=== PATIENT | female | born 1950 | race Caucasian/White ===

== ENCOUNTER 2020-04-05 13:59 | Outpatient (CLI) | payer MEDICARE, OTHER, SELFPAY ==
--- NOTE | 2020-04-05 14:31 | XR_ITS ---
WS: [id number] FOOT LEFT TECHNIQUE: 3 views of the left foot CLINICAL INFORMATION: FOOT PAIN, LEFT COMPARISON: None. FINDINGS: Osteopenia. Mild IP joint narrowing worse involving the DIP joints. No significant erosive changes. N ormal anatomic alignment. Enthesophyte at the Achilles insertion. XR/XR foot LT min 3V* [id number] IMPRESSION: No significant erosive changes.
== END 2020-04-05 14:00 | disposition home or self-care (01) ==
LOC: RADWPI 14:03
PROVIDERS: Family Provider Electrodiagnostic Medicine; PCP Electrodiagnostic Medicine; Visit Provider Electrodiagnostic Medicine
DX: M79.672 Pain in left foot (principal)
CPT/HCPCS: 73630

== ENCOUNTER 2020-04-19 15:29 | Outpatient (RCR) | payer MEDICARE, OTHER, SELFPAY | END 2020-04-26 23:59 | disposition home or self-care (01) | LOC: SPT 15:29 | PROVIDERS: PCP Electrodiagnostic Medicine; Visit Provider Podiatrist Foot & Ankle Surgery | DX: M76.72 Peroneal tendinitis, left leg (principal) | CPT/HCPCS: 97035; 97124; 97161 ==

== ENCOUNTER 2020-04-21 08:12 | Outpatient (CLI) | payer MEDICARE, OTHER, SELFPAY ==
--- NOTE | 2020-04-21 08:17 | MM_ITS ---
WS: [id number] BILATERAL DIGITAL SCREENING MAMMOGRAPHY WITH CAD CLINICAL INFORMATION: SCREENING HISTORY: Screening mammogram. No current complaints. COMPARISON: December 04, 2018 TECHNIQUE: Bilateral CC and MLO views. FINDINGS: Scattered fibroglandular densities bilaterally. No suspicious focal mass, asymmetry, calcifications, or architectural distortion. No evidence of malignancy. Stable punctate calcifications bilateral freddy sts. IMPRESSION: MM/[id number] BI-RADS: 2-Benign FOLLOW UP: 1 Year Follow-up Recommend return to annual screening mammography.
== END 2020-04-21 08:13 | disposition home or self-care (01) ==
LOC: RADSHAW 08:16
PROVIDERS: PCP Electrodiagnostic Medicine; Visit Provider Electrodiagnostic Medicine
DX: Z12.31 Encounter for screening mammogram for malignant neoplasm of breast (principal)
CPT/HCPCS: 77067

== ENCOUNTER 2020-04-27 06:00 | Outpatient (RCR) | payer MEDICARE, OTHER, SELFPAY | END 2020-05-27 23:59 | disposition home or self-care (01) | LOC: SPT 06:00 | PROVIDERS: PCP Electrodiagnostic Medicine; Visit Provider Podiatrist Foot & Ankle Surgery | DX: M76.72 Peroneal tendinitis, left leg (principal) | CPT/HCPCS: 97035; 97140 ==

== ENCOUNTER 2021-05-03 10:29 | Outpatient (CLI) | payer MEDICARE, SELFPAY ==
--- NOTE | 2021-05-03 10:41 | MM_ITS ---
WS: [id number] BILATERAL DIGITAL SCREENING MAMMOGRAPHY WITH CAD CLINICAL INFORMATION: SCREENING HISTORY: Screening mammogram. No current complaints. COMPARISON: April 21, 2020, 2018, 2017, 10,015 TECHNIQUE: Bilateral CC and MLO views. FINDINGS: Scattered fibroglandular densities bilaterally. Stable punctate and lucent centered calcifications. S table linear cluster of calcifications inferior medial left breast. No suspicious focal mass, asymmet ry, calcifications, or architectural distortion. No evidence of malignancy. MM/[place] [id number] IMPRESSION: BI-RADS: 2-Benign FOLLOW UP: 1 Year Follow-up Recommend return to annual screening mammography.
== END 2021-05-03 10:30 | disposition home or self-care (01) ==
LOC: RADSHAW 10:39
PROVIDERS: PCP Electrodiagnostic Medicine; Visit Provider Electrodiagnostic Medicine
DX: Z12.31 Encounter for screening mammogram for malignant neoplasm of breast (principal)
CPT/HCPCS: 77067

== ENCOUNTER 2022-04-08 07:21 | Outpatient (CLI) | payer MEDICARE, SELFPAY ==
--- NOTE | 2022-04-08 | XR_ITS ---
WS: [id number] LEFT HAND: 3 VIEW(S) TECHNIQUE: PA, oblique and lateral. HISTORY: LEFT HAND PAIN COMPARISON: None available. Mild narrowing of the interphalangeal joint with hypertrophic osteophytes. No erosions. No fracture. No soft tissue edema. XR/XR hand LT min 3V* [id number] IMPRESSION: Mild to moderate changes of osteoarthritis.
== END 2022-04-08 07:22 | disposition home or self-care (01) ==
LOC: RADOUTREAD 04-10 07:23
PROVIDERS: PCP Electrodiagnostic Medicine; Visit Provider Nurse Practitioner Family
DX: M79.642 Pain in left hand (principal); M19.042 Primary osteoarthritis, left hand
CPT/HCPCS: 73130

== ENCOUNTER → 2022-06-05 14:26 | Outpatient (BNVA) | payer MEDICARE, SELFPAY | PROVIDERS: PCP Electrodiagnostic Medicine; Visit Provider Orthopaedic Surgery | DX: M47.812 Spondylosis without myelopathy or radiculopathy, cervical region (principal) | CPT/HCPCS: 99204 ==

== ENCOUNTER 2022-06-11 09:54 | Outpatient (CLI) | payer MEDICARE, SELFPAY ==
--- NOTE | 2022-06-11 09:58 | MM_ITS ---
WS: [id number] VIEWS: MLO and CC views both breasts. 3D digital tomosynthesis is also included in this exam. Comparison made with prior exam of 07/21/2014. 08/09/2015, 02/15/2017, 12/04/2018, 04/21/2020, 05/03/2021.. Findings: There was no sign of mass, architectural distortion or suspicious calcification in either breast. Sc attered fibroglandular densities MM/[place] [id number] Impression: BI-RADS: 2-Benign FOLLOW-UP: 1 Year Follow-up This mammogram was also analyzed by the Computer Aided Detection System R2 Imag e Laundry Washer.
== END 2022-06-11 09:55 | disposition home or self-care (01) ==
LOC: RAD 09:55
PROVIDERS: PCP Electrodiagnostic Medicine; Visit Provider Electrodiagnostic Medicine
DX: Z12.31 Encounter for screening mammogram for malignant neoplasm of breast (principal)
CPT/HCPCS: 77063; 77067

== ENCOUNTER → 2022-08-06 08:56 | Outpatient (BNVA) | payer MEDICARE, SELFPAY | PROVIDERS: PCP Electrodiagnostic Medicine; Visit Provider Student in an Organized Health Care Education/Training Program | DX: M15.2 Bouchard's nodes (with arthropathy) (principal) | CPT/HCPCS: 73130; 99203 ==

== ENCOUNTER → 2023-05-22 10:50 | Outpatient (BNVA) | payer MEDICARE, SELFPAY | PROVIDERS: PCP Electrodiagnostic Medicine; Visit Provider Podiatrist Foot & Ankle Surgery | DX: Q82.8 Other specified congenital malformations of skin | CPT/HCPCS: 17110; 99203 ==

== ENCOUNTER 2023-06-26 09:20 | Outpatient (CLI) | payer MEDICARE, SELFPAY ==
--- NOTE | 2023-06-26 09:30 | MM_ITS ---
WS: [id number] VIEWS: MLO and CC views both breasts. 3D digital tomosynthesis is also included in this exam. Comparison made with prior exam of 08/09/2015, 02/15/2017, 12/04/2018, 04/21/2020, 05/03/2021, 06/11/2022.. Findings: There was no sign of mass, architectural distortion or suspicious calcification in either breast. Sta ble appearing nodular densities in both breasts. The breasts are heterogeneously dense which may obs cure small masses. Impression: MM/[place] [id number] BI-RADS: 2-Benign FOLLOW-UP: 1 Year Follow-up This mammogram was also analyzed by the Computer Aided Detection System R2 Imag e Product Development Worker.
== END 2023-06-26 09:21 | disposition home or self-care (01) ==
PROVIDERS: PCP Electrodiagnostic Medicine; Visit Provider Electrodiagnostic Medicine
DX: Z12.31 Encounter for screening mammogram for malignant neoplasm of breast (principal)
CPT/HCPCS: 77063; 77067

== ENCOUNTER → 2023-07-08 12:48 | Outpatient (BNVA) | payer MEDICARE, SELFPAY | PROVIDERS: PCP Electrodiagnostic Medicine; Visit Provider Podiatrist Foot & Ankle Surgery | DX: Q82.8 Other specified congenital malformations of skin | CPT/HCPCS: 17110 ==

== ENCOUNTER 2023-12-10 19:59 | Observation (INO) | payer MEDICARE, SELFPAY ==
[2023-12-10] VITALS (33 sets, daily range): BP systolic 109–154; BP diastolic 44–69; PULSE 87–102; RESP 17–18; TEMP 36.6; O2SAT 88–98; BMI 33.0
--- NOTE | 2023-12-10 20:14 | ED_ITS ---
HPI - Syncope 2 General: Chief Complaint: Syncope Stated Complaint: syncope Time Seen by Provider: 12/10/23 20:03 Source: patient and EMS Mode of arrival: EMS Limitations: no limitations History of Present Illness: 73-year-old female states she has had 4- 5 episodes of vomiting over the last 4 hours. States she has been very nauseous had some episodes of upper abdominal cramping as well. States that after her last episode of vomiting she did pass out. She denies hitting her head denies any headache she denies chest pain she denies any fever denies any diarrhea denies any blood in her stool. 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 Hx of osteoarthritis Loose right total knee arthroplasty Tachycardia Surgical History Hx of partial thyroidectomy Hx of lumpectomy History of laminectomy Hx of left knee surgery Family History Father , AGE 69 CAD (coronary artery disease) Myocardial infarction Stroke Mother , AGE 95 Atrial fibrillation Stroke Other Psychiatric illness Social History Smoking and tobacco/nicotine status: never used tobacco/nicotine Alcohol intake: never Household members: spouse Marital status: Current occupational status: employed Physical Exam 2 Const: COMMON NORMALS: no acute distress, patient oriented x3 and healthy appearing HENMT: COMMON NORMALS: normocephalic and atraumatic HEAD & SCALP: n ormocephalic and atraumatic Eye: COMMON NORMALS: Equal, round and reactive pupils present and EOMs intact bilaterally PUPIL: Yes Equal, round and reactive pupils present Neck/C-Spine: COMMON NORMALS: full ROM and supple Chest: COMMONS NORMALS: normal inspection of the chest and normal palpation of entire chest wall Resp: COMMON NORMALS: normal respiratory effort, No retractions, No use of accessory muscles and clear to auscultation bilaterally AUSCULTATION: clear to auscultation bilaterally Cardio: COMMON NORMALS: regular rate, regular rhythm and No murmurs present (Cardio) RATE: regular rate RHYTHM: regular rhythm GI: COMMON NORMALS: Normal to inspection, nondistended, normoactive bowel sounds present, Soft to palpation, non-tender and no masses PALPATION: Yes Soft to palpation Extremity: COMMON NORMALS: normal to inspection and full ROM Neuro: COMMON NORMALS: patient oriented x3, moves all extremities and no focal motor deficits Psych: COMMON NORMALS: mental status grossly normal, Normal thought process present and cooperative THOUGHT PROCESS: Normal thought process present Skin: COMMON NORMALS: no rashes or lesions noted and no wounds GENERAL SKIN EXAM: no rashes or lesions noted Course 2 Vital Signs: Vital signs: Vital Signs Temperature 97.8 F 12/10/23 20:01 Pulse Rate 102 H 12/10/23 20:13 Respiratory Rate 17 12/10/23 20:13 Blood Pressure 141/55 12/10/23 21:35 Pulse Oximetry 92 12/10/23 21:35 Oxygen Delivery Me thod Room Air 12/10/23 20:13 MDM - Syncope Medical Decision Making Patient presents here with an upper GI bleed she had hematemesis at home Gastroccult of the hematemesis is positive did a rectal exam here Hemoccult here is negative she does have a elevated BUN to creatinine ratio I believe she likely has had an upper GI bleed hemoglobin is stayed pretty much stable her vital signs here been stable I spoke to the hospitalist and surgeon will admit. Medical Records I reviewed the patient's medical records. Lab Data I reviewed the patient's lab results. 12/10/23 21:39 12/10/23 20:24 Laboratory Results WBC 10.32 10^3/uL (3.29-11.43) 12/10/23 20:24 RBC 3.61 10^6/uL (3.85-5.65) L 12/10/23 20:24 Hgb 10.40 g/dL (11.27-16.99) L 12/10/23 21:39 Hct 33.3 % (36-47) L 12/10/23 21:39 MCV 98.9 fl (85-98) H 12/10/23 20:24 MCH 31.9 pg (27-33) 12/10/23 20: MCHC 32.2 g/dL (30-55) 12/10/23 20:24 RDW 12.9 % (12.1-15.1) 12/10/23 20:24 Plt Count 273 10^3/cmm (157-399) 12/10/23 20: MPV 10.3 fL (7.4-10.4) 12/10/23 20:24 Neut % (Auto) 74.9 % 12/10/23 20:24 Lymph % (Auto) 16.5 % 12/10/23: [place] % (Auto) 6.6 % 12/10/23: Eos % (Auto) 1.2 % 12/10/23 20:24 Baso % (Auto) 0.4 % 12/10/23 20:24 Neut # (Auto) 7.74 10^3/uL (1.8-7.7) H 12/10/23 20:24 Lymph # (Auto) 1.7 10^3/uL (0.8-4.8) 12/10/23 20:24 [place] # (Auto) 0.7 10^3/uL (0.2-0.9) 12/10/23: Eos # (Auto) 0.1 10^3/uL (0.0-0.8) 12/10/23 20:24 Baso # (Auto) 0.0 10^3/uL (0.0-0.1) 12/10/23: Nucleated RBC % (auto) 0 % 12/10/23: Nucleated RBCs # 0.0 /100WBC 12/10/23 20:24 Sodium 140 mmol/L (136-145) 12/10/23 20:24 Potassium 4.1 mmol/L (3.5-5.1) 12/10/23:24 Chloride 104 mmol/L (98-107) 12/10/23 20:24 Carbon Dioxide 26 mmol/L (22-29) 12/10/23 20:24 Anion Gap 14.1 (5-19) 12/10/23 20:24 BUN 61 mg/dL (8-23) H 12/10/23 20:24 Creatinine 0.7 mg/dL (0.5-0.9) 12/10/23 20:24 GFR Calculation Not Reportable 12/10/23 20:24 Glucose 151 mg/dL (65-115) H 12/10/23 20:24 Calculated Osmolality 310 mOsm/kg (285-295) H 12/10/23 20:24 Calcium 9.2 mg/dL (8.5-10.5) 12/10/23 20:24 Total Bilirubin 0.3 mg/dL (0.15-1.2) 12/10/23 20:24 AST 18 U/L (0-32) 12/10/23 20:24 ALT 17 U/L (0-33) 12/10/23 20:24 Alkaline Phosphatase 48 U/L (35-105) 12/10/23 20:24 Total Protein 6.2 g/dL (6.6-8.7) L 12/10/23 20:24 Albumin 3.9 g/dL (3.5-5.2) 12/10/23 20:24 Globulin 2.3 g/dL (1.3-4.6) 12/10/23 20:24 Lipase 57 U/L (13-60) 12/10/23 20:24 Gastric Occult Blood Positive (Negative) H 12/10/23 21:34 All radiology interpretation(s) finalized by discharge EKG Data EKG 1: I personally reviewed and interpreted this EKG as follows: EKG interpretation date: 12/10/23 EKG interpretation time: 20:26 Interpretation: sinus tach hr [address] or t wave abnormalities qrs 86 qtc 387 Discharge Plan Discharge Patient Disposition: Admitted As Inpatient Clinical Impression: Acute upper GI bleed, Syncope Condition: Stable Prescriptions: No Action alprazolam 0.25 mg tablet 0.25 mg PO BID PRN (Reason: anxiety) dicyclomine 10 mg capsule 10 mg PO BID PRN cholecalciferol (vitamin D3) 125 mcg (5,000 unit) capsule 125 mcg PO DAILY garlic Capsule 300 mg PO DAILY ascorbic acid (vitamin C) 1,000 mg tablet 1 gm PO DAILY naproxen sodium [Aleve] 220 mg capsule 220 mg PO BID PRN magnesium oxide 400 mg magnesium capsule 400 mg PO DAILY Qty: 90 3RF meloxicam 15 mg tablet 15 mg PO DAILY 30 Days Qty: 30 0RF prednisone 20 mg tablet 20 mg PO DAILY 5 Days Qty: 5 0RF azithromycin 250 mg tablet See Rx Instructions PO .COMPLEX Qty: 6 0RF Rx Instructions: take 500 mg today (day 1), then 250 mg for 4 days (days 2-5) PO fluorouracil [Efudex] 5 % cream 1 applic topical BID 28 Days Qty: 40 2RF Referrals: Sarath Kahn DO [Primary Care Provider] - Coding Level of Care Code ED Infant And Toddler Teacher for Iraida Love
--- NOTE | 2023-12-10 20:26 | ECG_ITS ---
[facility] Test Date: 2023-12-10 Pat Name: Elsie Esparza Department: Room: Gender: Female [employer] Operations Specialist: : [id number] Requested By: Lisa Borges Order Number: [id number] Kamilla MD: Omar Huang M.D. Measurements Intervals [place] Rate: 101 P: 49 MD: 139 QRS: 9 QRSD: 86 T: 17 QT: 329 QTc: 428 Interpretive Statements SINUS TACHYCARDIA MINIMAL VOLTAGE CRITERIA FOR LVH, CONSIDER NORMAL VARIANT [MEETS CRITERIA IN ONE OF: R(aVL), S(V1), R(V5), R(V5/V6)+S(V1)] ABNORMAL RHYTHM ECG No previous ECG available for comparison Electronically Signed On 12-11-2023 15:46:13 MANAGER OF PROCUREMENT by Omar Huang M.D. [id number]
[2023-12-10 20:39] LABS: Basophils % 0.4 %; Eosinophils # 0.1 10^3/uL (0.0-0.8); Eosinophils % 1.2 %; Hematocrit 35.7 % (36-47); Lymphocytes # 1.7 10^3/uL (0.8-4.8); Lymphocytes % 16.5 %; Mean Corpuscular HGB Conc 32.2 g/dL (30-55); Mean Corpuscular Hemoglobin 31.9 pg (27-33); Mean Corpuscular Volume 98.9 fl (85-98); Mean Platelet Volume 10.3 fL (7.4-10.4); Monocytes # 0.7 10^3/uL (0.2-0.9); Monocytes % 6.6 %; Neutrophils # 7.74 10^3/uL (1.8-7.7); Neutrophils % 74.9 %; Nucleated Red Blood Cells % 0 %; Platelet Count 273 10^3/cmm (157-399); Red Blood Count 3.61 10^6/uL (3.85-5.65); Red Cell Distribution Width 12.9 % (12.1-15.1); White Blood Count 10.32 10^3/uL (3.29-11.43)
[2023-12-10 20:54] LABS: Alanine Aminotransferase 17 U/L (0-33); Albumin Level 3.9 g/dL (3.5-5.2); Alkaline Phosphatase 48 U/L (35-105); Anion Gap 14.1 (5-19); Aspartate Amino Transferase 18 U/L (0-32); Blood Urea Nitrogen 61 mg/dL (8-23); Calcium 9.2 mg/dL (8.5-10.5); Carbon Dioxide 26 mmol/L (22-29); Chloride 104 mmol/L (98-107); Globulin 2.3 g/dL (1.3-4.6); Glucose 151 mg/dL (65-115); Lipase 57 U/L (13-60); Osmolality Calculated 310 mOsm/kg (285-295); Potassium 4.1 mmol/L (3.5-5.1); Sodium 140 mmol/L (136-145); Total Bilirubin 0.3 mg/dL (0.15-1.2); Total Protein 6.2 g/dL (6.6-8.7)
[2023-12-10] MEDS: pantoprazole 40 mg SDV 80 MG IVP (21:40)
[2023-12-10 21:49] LABS: Gastricult Occult Blood Positive (Negative)
[2023-12-10 21:54] LABS: Hematocrit 33.3 % (36-47)
[2023-12-11] VITALS (13 sets, daily range): BP systolic 95–155; BP diastolic 54–86; PULSE 83–136; RESP 14–18; TEMP 36.1–36.9; O2SAT 94–99
--- NOTE | 2023-12-11 01:52 | P.HP_ITS ---
Providers/Chief Complaint 2 Admitting Physician: Lan Menjivar Primary Care Provider: Sarath Kahn DO Chief Complaint: syncope History of Present Illness Pleasant 73-year-old lady presented to ER with multiple episodes of coffee- ground emesis positive for Gastroccult. Hemoccult was negative. Denies blood in stool or dark black stools. Does take meloxicam, occasionally also gets a course of prednisone here and there. In ER initially tachycardic but improved with resuscitation. Hemoglobin initially 11.5, with resuscitation down to 10.4 last night. So far no additional hematemesis. Review of Systems 2 Const: Denies: fever(s), chills, body aches or malaise ENMT: Denies: throat pain Card: Denies: chest pain, edema, pre-syncope or dyspnea on exertion Resp: Denies: dyspnea, productive cough, change in phlegm color or hemoptysis GI: Reports: abdominal pain (brief after transferring from [facility]), nausea, vomiting and coffee ground emesis; Denies: diarrhea, constipation, hematochezia or melena : Denies: flank pain, urinary frequency or hematuria Musc: Denies: back pain, joint swelling or joint redness Skin/Breast: Denies: rash or new lesions Neuro: Denies: headache(s), numbness in extremities, weakness in extremities, dizziness, confusion or seizure-like activity Medications/Allergies Home Medications Medication Instructions Recorded Confirmed Last Taken Type alprazolam 0.25 mg tablet 0.25 mg PO BID PRN anxiety 03/31/20 07/08/23 Unknown History ascorbic acid (vitamin C) 1,000 mg 1 gm PO DAILY 03/31/20 07/08/23 Unknown History tablet cholecalciferol (vitamin D3) 125 125 mcg PO DAILY 03/31/20 07/08/23 Unknown History mcg (5,000 unit) capsule dicyclomine 10 mg capsule 10 mg PO BID PRN 03/31/20 07/08/23 Unknown History garlic 300 mg PO DAILY 03/31/20 07/08/23 Unknown History naproxen sodium 220 mg capsule 220 mg PO BID PRN 03/31/20 07/08/23 Unknown History (Aleve) magnesium oxide 400 mg PO DAILY #90 caps 04/06/20 07/08/23 Unknown Rx meloxicam 15 mg tablet 15 mg PO DAILY PTTD left lower 05/18/20 07/08/23 Unknown Rx extrimity 30 days #30 tabs azithromycin 250 mg tablet See Rx Instructions PO .COMPLEX #6 01/27/23 07/08/23 Unknown Rx tabs prednisone 20 mg tablet 20 mg PO DAILY 5 days #5 tabs 01/27/23 07/08/23 Unknown Rx fluorouracil 5 % topical cream 1 applic topical BID 4 weeks #40 07/08/23 07/08/23 Unknown Rx (Efudex) grams Allergies Allergy/AdvReac Type Severity Reaction Status Date / Time hydrocodone Allergy unk Verified 12/10/23 20:07 PFSH Acute 2 PFSH: Medical History 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 Hx of osteoarthritis Loose right total knee arthroplasty Tachycardia Surgical History Hx of partial thyroidectomy Hx of lumpectomy History of laminectomy Hx of left knee surgery Family History Father , AGE 69 CAD (coronary artery disease) Myocardial infarction Stroke Mother , AGE 95 Atrial fibrillation Stroke Other Psychiatric illness Social History Smoking and tobacco/nicotine status: never used tobacco/nicotine Alcohol intake: never Household members: spouse Marital status: Current occupational status: employed Vitals/I&O/Wt Last Vital Signs Temp 97.6 F 12/11/23 00:46 Pulse 87 12/11/23 00:46 Resp 18 12/11/23 00:46 BP 155/73 12/11/23 00:46 Pulse Ox 97 12/11/23 00:46 O2 Del Method Room Air 12/11/23 00:46 Weight last 48 hrs Weight 98.43 kg Physical Exam 2 Const: COMMON NORMALS: patient oriented x3 and alert GENERAL APPEARANCE: c ooperative ORIENTATION/CONSCIOUSNESS: Yes awake HENMT: COMMON NORMALS: oropharynx normal Neck/C-Spine: COMMON NORMALS: no JVD Resp: COMMON NORMALS: normal respiratory effort and clear to auscultation bilaterally AUSCULTATION: clear to auscultation bilaterally Cardio: COMMON NORMALS: no JVD, regular rhythm, S1 normal heart sound present, S2 normal heart sound present and No murmurs present (Cardio) RHYTHM: regular rhythm HEART SOUNDS: S1 normal heart sound present and S2 normal heart sound present GI: COMMON NORMALS: Normal to inspection, nondistended, normoactive bowel sounds present, Soft to palpation and non-tender PALPATION: Yes Soft to palpation Extremity: COMMON NORMALS: no joint enlargement and no pedal edema Neuro: COMMON NORMALS: patient oriented x3 and moves all extremities S ENSORIUM/ORIENTATION: Yes alert Skin: COMMON NORMALS: no rashes or lesions noted GENERAL SKIN EXAM: no rashes or lesions noted Data 12/10/23 21:39 12/10/23 20:24 A&P Assessment and plan (1) Acute upper GI bleed: Upper GI bleed with recurrent coffee-ground emesis positive for Gastroccult. Takes meloxicam at home. Discussed with her discontinuing NSAIDs long-term. Occasionally gets prednisone course as well. Reviewed vitals, CBC, CMP, repeat hemoglobin, INR, lipase, Gastroccult, EKG, ER physician note, discussed with ER physician. Surgery consulted in ER, pending evaluation. She states that she would be okay with getting a scope here but in case of needing any surgical intervention her preference would then be to go to [place]. Received 80 mg IV PPI x 1, continue PPI. N.p.o. Recheck CBC. Chemistry. Plan Acute blood loss anemia: Hemoglobin down to 10.4. MCV is mildly macrocytic, will check TSH, B12, folic acid. Osteoarthritis: Discontinue NSAIDs. Other medical problems Requested home medications to be confirmed, please reconcile once available. Attestations 2 Medical Necessity Statement*: Place in observation for additional assessment management of upper GI bleeding with acute blood loss anemia. Diagnoses Acute upper GI bleed K92.2
[2023-12-11 02:25] LABS: Basophils % 0.1 %; Hematocrit 32.7 % (36-47); Lymphocytes # 0.9 10^3/uL (0.8-4.8); Mean Corpuscular HGB Conc 31.8 g/dL (30-55); Mean Corpuscular Hemoglobin 31.2 pg (27-33); Mean Corpuscular Volume 98.2 fl (85-98); Mean Platelet Volume 10.2 fL (7.4-10.4); Monocytes # 0.3 10^3/uL (0.2-0.9); Monocytes % 3.6 %; Nucleated Red Blood Cells % 0 %; Platelet Count 239 10^3/cmm (157-399); Red Blood Count 3.33 10^6/uL (3.85-5.65); Red Cell Distribution Width 12.7 % (12.1-15.1); White Blood Count 7.23 10^3/uL (3.29-11.43)
[2023-12-11] MEDS: lactated ringers 1,000 ML 75 ML IV (02:39)
[2023-12-11 02:41] LABS: Anion Gap 11.9 (5-19); Blood Urea Nitrogen 62 mg/dL (8-23); Calcium 8.7 mg/dL (8.5-10.5); Carbon Dioxide 25 mmol/L (22-29); Chloride 107 mmol/L (98-107); Glucose 109 mg/dL (65-115); Osmolality Calculated 306 mOsm/kg (285-295); Potassium 4.9 mmol/L (3.5-5.1); Sodium 139 mmol/L (136-145)
[2023-12-11 03:00] LABS: Thyroid Stimulating Hormone 0.73 uIU/mL (0.27-4.20); Vitamin B12 564 pg/mL (232-1245)
[2023-12-11 03:24] LABS: Folate Level > 20.0 ng/mL (4.8-37.3)
[2023-12-11] MEDS: pantoprazole 40 mg SDV IVP (07:35)
--- NOTE | 2023-12-11 08:51 | PC.PHAR ---
pt states she takes care of her own medications-pt states she normally takes mag ox cap daily but states the store was out of it so she went and got mag citrate and was taking 2 cap a day but states she went back to taking the mag ox cap on 12/10/23-
--- NOTE | 2023-12-11 12:27 | PM.DCS ---
Discharge Providers Date of Admission: 12/11/23 00:04 Date of Discharge: December 11, 2023 Attending Provider at Admission: Lan Menjivar Attending Provider at Discharge: Trisha Reis MD Primary Care Provider: Sarath Kahn DO Diagnoses at Discharge Discharge Diagnosis (1) Acute upper GI bleed: Status: Inactive Reason for Visit Reason for Visit: syncope Hospital Course Hospital Course 73-year female without previous history of gastric ulcer, previous colonoscopies were unremarkable presented with chief complaint of upper GI bleed with coffee-ground emesis. Hemoglobin remained stable, FOBT positive, patient was planned for EGD. Dr. Tafoya consulted for endoscopy. She remained hemodynamically stable EGD showed soft scaring, hiatal hernia and nonbleeding esophageal varices, gastric ulcer with duodenitis, biopsies were taken, She was given sucralfate and Protonix. Follow-up with Dr. Tafoya for biopsy report Physical Exam Narrative: Alert Sitting in a chair GCS 15 Nonfocal neuroexam S1, S2 Discharge Data Studies Completed and Pending Pending at discharge Category Date Time Status Basic Metabolic Panel AM LABS Lab 12/12/23 04:00 Ordered Basic Metabolic Panel AM LABS Lab 12/13/23 04:00 Ordered Basic Metabolic Panel AM LABS Lab 12/14/23 04:00 Ordered Complete Blood Count w/Auto AM LABS Lab 12/12/23 04:00 Ordered Complete Blood Count w/Auto AM LABS Lab 12/13/23 04:00 Ordered Complete Blood Count w/Auto AM LABS Lab 12/14/23 04:00 Ordered Laboratory Results WBC 7.23 10^3/uL (3.29-11.43) 12/11/23 02:17 RBC 3.33 10^6/uL (3.85-5.65) L 12/11/23 02:17 Hgb 10.40 g/dL (11.27-16.99) L 12/11/23 02:17 Hct 32.7 % (36-47) L 12/11/23 02:17 MCV 98.2 fl (85-98) H 12/11/23 02:17 MCH 31.2 pg (27-33) 12/11/23 02:17 MCHC 31.8 g/dL (30-55) 12/11/23 02:17 RDW 12.7 % (12.1-15.1) 12/11/23 02:17 Plt Count 239 10^3/cmm (157-399) 12/11/23 02:17 MPV 10.2 fL (7.4-10.4) 12/11/23 02:17 Neut % (Auto) 83.0 % 12/11/23 02:17 Lymph % (Auto) 13.0 % 12/11/23 02:17 [place] % (Auto) 3.6 % 12/11/23 02:17 Eos % (Auto) 0.0 % 12/11/23 02:17 Baso % (Auto) 0.1 % 12/11/23 02:17 Neut # (Auto) 6.00 10^3/uL (1.8-7.7) 12/11/23 02:17 Lymph # (Auto) 0.9 10^3/uL (0.8-4.8) 12/11/23 02:17 [place] # (Auto) 0.3 10^3/uL (0.2-0.9) 12/11/23 02:17 Eos # (Auto) 0.0 10^3/uL (0.0-0.8) 12/11/23 02:17 Baso # (Auto) 0.0 10^3/uL (0.0-0.1) 12/11/23 02:17 Nucleated RBC % (auto) 0 % 12/11/23 02:17 Nucleated RBCs # 0.0 /100WBC 12/11/23 02:17 PT 13.50 SECONDS (12.1-14.9) 12/10/23 20:24 INR 1.00 (0.8-1.2) 12/10/23 20:24 Sodium 139 mmol/L (136-145) 12/11/23 02:17 Potassium 4.9 mmol/L (3.5-5.1) 12/11/23 02:17 Chloride 107 mmol/L (98-107) 12/11/23 02:17 Carbon Dioxide 25 mmol/L (22-29) 12/11/23 02:17 Anion Gap 11.9 (5-19) 12/11/23 02:17 BUN 62 mg/dL (8-23) H 12/11/23 02:17 Creatinine 0.6 mg/dL (0.5-0.9) 12/11/23 02:17 GFR Calculation Not Reportable 12/11/23 02:17 Glucose 109 mg/dL (65-115) 12/11/23 02:17 Calculated Osmolality 306 mOsm/kg (285-295) H 12/11/23 02:17 Calcium 8.7 mg/dL (8.5-10.5) 12/11/23 02:17 Total Bilirubin 0.3 mg/dL (0.15-1.2) 12/10/23 20:24 AST 18 U/L (0-32) 12/10/23 20:24 ALT 17 U/L (0-33) 12/10/23 20:24 Alkaline Phosphatase 48 U/L (35-105) 12/10/23 20:24 Total Protein 6.2 g/dL (6.6-8.7) L 12/10/23 20:24 Albumin 3.9 g/dL (3.5-5.2) 12/10/23 20:24 Globulin 2.3 g/dL (1.3-4.6) 12/10/23 20:24 Lipase 57 U/L (13-60) 12/10/23 20:24 Vitamin B12 564 pg/mL (232-1245) 12/11/23 02:17 Folate > 20.0 ng/mL (4.8-37.3) 12/11/23 02:17 TSH 0.73 uIU/mL (0.27-4.20) 12/11/23 02:17 Gastric Occult Blood Positive (Negative) H 12/10/23 21:34 Blood Type A Positive 12/10/23 22:03 Rho(D) Type Rh positive 12/10/23 22:03 Antibody Screen Negative 12/10/23 22:03 Vitals Last Vital Signs Temp 98.5 F 12/11/23 07:57 Pulse 136 H 12/11/23 11:40 Resp 18 12/11/23 11:40 BP 136/72 12/11/23 11:40 Pulse Ox 95 12/11/23 11:40 O2 Del Method Room Air 12/11/23 11:40 Discharge Plan Discharge Patient Disposition: Home Condition: Stable Prescriptions: New Protonix 40 mg tablet,delayed release (DR/EC) 40 mg PO BID 56 Days Qty: 112 0RF sucralfate 1 gram tablet 1 g PO BID Qty: 120 0RF Continued alprazolam 0.25 mg tablet 0.25 mg PO BID PRN (Reason: anxiety) dicyclomine 10 mg capsule 10 mg PO BID PRN (Reason: Abdominal Discomfort) cholecalciferol (vitamin D3) 125 mcg (5,000 unit) capsule 125 mcg PO QAM ascorbic acid (vitamin C) 1,000 mg tablet 1,000 mg PO QAM magnesium oxide 400 mg magnesium capsule 400 mg PO DAILY Qty: 90 3RF garlic 500 mg Capsule 500 mg PO QAM clobetasol 0.05 % solution See Rx Instructions .ROUTE .COMPLEX Rx Instructions: topically as directed as needed magnesium citrate 125 mg Capsule 250 mg PO DAILY [place] Q Plus () See Rx Instructions .ROUTE .COMPLEX Rx Instructions: take one cap po in the am @05:00 and 2 caps po at noon Discontinued meloxicam 15 mg tablet 15 mg PO QAM Discharge Orders: Discharge Order (Routine); Ordered 12/11/23 Ordered By: Trisha Reis Referrals: Sarath Kahn DO [Primary Care Provider] - 12/18/23 10:10 am Andres Tafoya DO [Physician] - 2 weeks Patient Instructions: Sucralfate (By mouth), Pantoprazole (By mouth), Gastrointestinal Bleeding (GEN), GI Discharge Instructions, Opioid Safety Discharge Attestations Time Spent in Discharge Care*: greater than 30 min Quality Metrics Clinical Quality Measures [ No reported AMI, CVA or VTE this stay] Coding Level of Care Code Acute Code for Chg Fwd Diagnoses Acute upper GI bleed K92.2
[2023-12-11] MEDS: sodium chloride 0.9% 1,000 ML 30 ML IV (13:07)
--- NOTE | 2023-12-11 14:16 | P.CONIM_ITS ---
Providers/Reason For Consult 2 Consulting Physician/Specialty*: Dr. Andres Tafoya, /General surgery Reason for Consult*: Upper GI bleed Attending Physician: Trisha Reis MD Primary Care Provider: Sarath Kahn DO History of Present Illness History of Present Illness Elsie Esparza is a 73 year old female who presented to the hospital with multiple episodes of emesis with coffee-ground emesis. She reports that she was having Epigastric abdominal pain that has now resolved and she denies any diarrhea, constipation, hematochezia and/or melena. Gastric occult blood was positive but Hemoccult was negative Review of Systems 2 General: Reports: 10 or more systems reviewed and unremarkable except in HPI and below Medications/Allergies Home Medications Medication Instructions Recorded Confirmed Last Taken Type alprazolam 0.25 mg tablet 0.25 mg PO BID PRN anxiety 03/31/20 12/11/23 Unknown History ascorbic acid (vitamin C) 1,000 mg 1,000 mg PO QAM 03/31/20 12/11/23 Unknown History tablet cholecalciferol (vitamin D3) 125 125 mcg PO QAM 03/31/20 12/11/23 Unknown History mcg (5,000 unit) capsule dicyclomine 10 mg capsule 10 mg PO BID PRN Abdominal 03/31/20 12/11/23 Unknown History Discomfort magnesium oxide 400 mg PO DAILY #90 caps 04/06/20 12/11/23 12/10/23 Rx [place] Q Plus () See Rx Instructions .Route .COMPLEX 12/11/23 12/11/23 Unknown History clobetasol 0.05 % scalp solution See Rx Instructions .Route .COMPLEX 12/11/23 12/11/23 Unknown History garlic 500 mg capsule 500 mg PO QAM 12/11/23 12/11/23 Unknown History magnesium citrate 125 mg capsule 250 mg PO DAILY 12/11/23 12/11/23 2 Days Ago History ~12/09/23 normally uses mag ox meloxicam 15 mg tablet 15 mg PO QAM PTTD left lower 12/11/23 12/11/23 Unknown History extrimity Allergies Allergy/AdvReac Type Severity Reaction Status Date / Time hydrocodone Allergy unk Verified 12/11/23 08:40 Current Medications Generic Name Dose Route Start Last Admin Trade Name Freq PRN Reason Stop Dose Admin Lactated Ringer's 1,000 mls @ 75 mls/hr 12/11/23 02:00 12/11/23 02:39 Lactated Ringers IV 75 mls/hr .[id number] KEITH Administration Sodium Chloride 1,000 mls @ 30 mls/hr 12/11/23 13:00 12/11/23 13:07 Sodium Chloride 0.9% IV 12/12/23 12:59 30 mls/hr .Q24H KEITH Administration Pantoprazole Sodium 40 mg 12/11/23 09:00 12/11/23 07:35 Pantoprazole 40 Mg Sdv IVP 40 mg Q12H KEITH Administration PFSH Acute 2 PFSH: Medical History 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 Hx of osteoarthritis Loose right total knee arthroplasty Tachycardia Surgical History Hx of partial thyroidectomy Hx of lumpectomy History of laminectomy Hx of left knee surgery Family History Father , AGE 69 CAD (coronary artery disease) Myocardial infarction Stroke Mother , AGE 95 Atrial fibrillation Stroke Other Psychiatric illness Social History Smoking and tobacco/nicotine status: never used tobacco/nicotine Alcohol intake: never Household members: spouse Marital status: Current occupational status: employed Vitals/I&O/Wt Last Vital Signs Temp 98.0 F 12/11/23 12:52 Pulse 94 12/11/23 12:52 Resp 16 12/11/23 12:52 BP 139/65 12/11/23 12:52 Pulse Ox 95 12/11/23 12:52 O2 Del Method Room Air 12/11/23 12:52 Weight last 48 hrs Weight 221 lb Weight 217 lb Physical Exam 2 Narrative: General : Patient is well developed , no acute distress, oriented x3 Head : Normal cephalic, a-traumatic. Ears : Pinnae and external canal are normal. Hearing is normal. Eyes : PERRLA, Sclera and injection are normal. No conjunctival discharge. Nose : Mucous membranes are without erythema. Throat : buccal mucosa is normal, gums are without significant recession or hypertrophy. Lungs : Equal chest rise bilaterally, no use of accessory muscles, trachea is midline. Cor : Rate and rhythm are normal. Abdomen : Soft, ND, NT, no g/r/m Extremities : No edema, no cyanosis or clubbing, dorsalis pedis pulses are present bilaterally, non-tender to palpation of calves. Upper extremities are normal bilaterally. Back : non-tender to palpation, no CVA tenderness. Neuro : CN II - XII intact, Upper and lower extremities have equal and full strength Data 12/11/23 02:17 12/11/23 02:17 A&P Assessment and plan (1) Acute upper GI bleed: Plan EGD The risks and benefits of the procedure, including bleeding, infection, intestinal perforation requiring surgery, missed lesion were explained to the patient. The patient is understanding of the risks and wishes to proceed. Coding Level of Care Code 87647 Diagnoses Acute upper GI bleed K92.2
--- NOTE | 2023-12-11 14:21 | P.ANESASSM_ITS ---
Pre-Anesthetic Assessment Height/Weight: Height 1.73 m Weight 100.244 kg Temp Pulse Resp BP Pulse Ox O2 Del Method 98.0 F 94 16 139/65 95 Room Air 12/11/23 12:52 12/11/23 12:52 12/11/23 12:52 12/11/23 12:52 12/11/23 12:52 12/11/23 12:52 Preop Diagnosis: bloody emesis Operation Date: 12/11/23 14:00 Proposed Procedures p EGD(Not Applicable) - Andres Tafoya, DO Was Beta Eduar taken within 24 hours: N/A Was Clonidine taken within 24 hours: N/A Last intake: Intake Last Liquid Date 12/10/23 Last Liquid Time 17:00 Last Solid Date 12/10/23 Last Solid Time 10:30 Social No alcohol and No tobacco Exam alert, oriented x 3, clear to auscultation bilaterally and regular rate & rhythm Airway Submandibular: within normal limits Cervical ROM: within normal limits Mallampati: Class I Comments: Comments: large underbite History/ROS No significant history except as noted Pulmonary Upper Respiratory Infection CV/HEM None reported None reported Hepatic None reported GI Gastroesophageal Reflux Disease Metabolic Morbid Obesity [facility] [place] Lower Back Pain Neuropsych Anxiety and Depression Anesthetic Plan ASA status: 2 Anesthesia: Anesthesia Evaluation and General Risk of > 500 ml blood loss (7ml/kg in children): Yes, adequate IV access and fluids planned Medications/Allergies Home Medications Medication Instructions Recorded Confirmed Last Taken Type alprazolam 0.25 mg tablet 0.25 mg PO BID PRN anxiety 03/31/20 12/11/23 Unknown History ascorbic acid (vitamin C) 1,000 mg 1,000 mg PO QAM 03/31/20 12/11/23 Unknown History tablet cholecalciferol (vitamin D3) 125 125 mcg PO QAM 03/31/20 12/11/23 Unknown History mcg (5,000 unit) capsule dicyclomine 10 mg capsule 10 mg PO BID PRN Abdominal 03/31/20 12/11/23 Unknown History Discomfort magnesium oxide 400 mg PO DAILY #90 caps 04/06/20 12/11/23 12/10/23 Rx [place] Q Plus () See Rx Instructions .Route .COMPLEX 12/11/23 12/11/23 Unknown History clobetasol 0.05 % scalp solution See Rx Instructions .Route .COMPLEX 12/11/23 12/11/23 Unknown History garlic 500 mg capsule 500 mg PO QAM 12/11/23 12/11/23 Unknown History magnesium citrate 125 mg capsule 250 mg PO DAILY 12/11/23 12/11/23 2 Days Ago History ~12/09/23 normally uses mag ox meloxicam 15 mg tablet 15 mg PO QAM PTTD left lower 12/11/23 12/11/23 Unknown History extrimity Allergies Allergy/AdvReac Type Severity Reaction Status Date / Time hydrocodone Allergy unk Verified 12/11/23 08:40 Current Medications Generic Name Dose Route Start Last Admin Trade Name Freq PRN Reason Stop Dose Admin Lactated Ringer's 1,000 mls @ 75 mls/hr 12/11/23 02:00 12/11/23 02:39 Lactated Ringers IV 75 mls/hr .[id number] KEITH Administration Sodium Chloride 1,000 mls @ 30 mls/hr 12/11/23 13:00 12/11/23 13:07 Sodium Chloride 0.9% IV 12/12/23 12:59 30 mls/hr .Q24H KEITH Administration Pantoprazole Sodium 40 mg 12/11/23 09:00 12/11/23 07:35 Pantoprazole 40 Mg Sdv IVP 40 mg Q12H KEITH Administration PFSH Anesthesia Medical History 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 Hx of osteoarthritis Loose right total knee arthroplasty Tachycardia Surgical History Hx of partial thyroidectomy Hx of lumpectomy History of laminectomy Hx of left knee surgery Family History Father , AGE 69 CAD (coronary artery disease) Myocardial infarction Stroke Mother , AGE 95 Atrial fibrillation Stroke Other Psychiatric illness Social History Smoking and tobacco/nicotine status: never used tobacco/nicotine Alcohol intake: never Household members: spouse Marital status: Current occupational status: employed Data Anesthesia 12/11/23 02:17 02/14/24 02:17 Short CBC 12/10/23 12/10/23 12/11/23 Range/Units 20:24 21:39 02:17 WBC 10.32 7.23 (3.29-11.43) 10^3/uL Hgb 11.50 10.40 L 10.40 L (11.27-16.99) g/dL Hct 35.7 L 33.3 L 32.7 L (36-47) % MCV 98.9 H 98.2 H (85-98) fl Plt Count 273 239 (157-399) 10^3/cmm Neut % (Auto) 74.9 83.0 % Neut # (Auto) 7.74 H 6.00 (1.8-7.7) 10^3/uL BMP 12/10/23 12/11/23 20:24 02:17 Sodium 140 139 Potassium 4.1 4.9 Chloride 104 107 Carbon Dioxide 26 25 BUN 61 H 62 H Creatinine 0.7 0.6 Glucose 151 H 109 Calcium 9.2 8.7 Liver Function 12/10/23 Range/Units 20:24 Total Bilirubin 0.3 (0.15-1.2) mg/dL AST 18 (0-32) U/L ALT 17 (0-33) U/L Alkaline Phosphatase 48 (35-105) U/L Albumin 3.9 (3.5-5.2) g/dL Blood Bank 12/10/23 22:03 Blood Type A Positive Rho(D) Type Rh positive Antibody Screen Negative Coags 12/10/23 20:24 PT 13.50 INR 1.00 Cardiac Studies: 2 No Data to Display
--- NOTE | 2023-12-11 16:38 | ANE.PACU2 ---
Inpatient post-anesthesia follow up: Airway intact: Yes Vital signs: Temperature 98.3 F Pulse Rate 89 Respiratory Rate 18 Blood Pressure 132/75 Pulse Oximetry 98 Oxygen Delivery Me thod Room Air Oxygen Flow Rate Fraction of Inspir ed Oxygen Hydration adequate: Yes Nausea and vomiting: No Pain level: 2 Mental status: Baseline
[2023-12-11] MEDS: sucralfate 1 gm/10 mL Oral Liq UDC PO (17:42)
== END 2023-12-11 18:44 | disposition home or self-care (01) ==
LOC: ER 22:40 → CSU 23:59 → MEDSURG 12-11 00:04
PROVIDERS: Surgery; Admitting Provider Internal Medicine; Emergency Provider Emergency Medicine; PCP Electrodiagnostic Medicine; Visit Provider Internal Medicine
PROC: 0DJ08ZZ Inspection of Upper Intestinal Tract, Via Natural or Artificial Opening Endoscopic (ICD-10-PCS; CPT 43235; principal; 2023-12-11 14:00)
DX: K25.9 Gastric ulcer, unspecified as acute or chronic, without hemorrhage or perforation (principal); Z87.11 Personal history of peptic ulcer disease; K44.9 Diaphragmatic hernia without obstruction or gangrene; K29.80 Duodenitis without bleeding; K22.2 Esophageal obstruction; I85.00 Esophageal varices without bleeding; R00.0 Tachycardia, unspecified
CPT/HCPCS: 36415; 43239; 80048; 80053; 82271; 82607; 82746; 83690; 84443; 85014; 85018; 85025; 85610; 86850; 86900; 88305; 88342; 93005; 96374; 99285; C9113; G0378; J2704; J3010; J7030; J7120

== ENCOUNTER 2024-03-02 18:34 | Emergency (ER) | payer MEDICARE, SELFPAY ==
[2024-03-02] VITALS (10 sets, daily range): BP systolic 130–155; BP diastolic 65–93; PULSE 70–81; RESP 12–18; TEMP 36.9; O2SAT 94–97; BMI 32.6
--- NOTE | 2024-03-02 18:35 | XRR_ITS ---
PROCEDURE INFORMATION: Exam: XR Chest Exam date and time: 03/02/2024 6:56 PM Age: 73 years old Clinical indication: Pain; Chest pressure; Additional info: Cp TECHNIQUE: Imaging protocol: Radiologic exam of the chest. Views: 1 view. COMPARISON: MR cervical spin wo con* [id number] 04/27/2022 9:50 AM FINDINGS: Lungs: Unremarkable. No consolidation. Pleural spaces: Unremarkable. No pleural effusion. No pneumothorax. Heart/Mediastinum: Unremarkable. No cardiomegaly. Bones/joints: Unremarkable. XR/XR chest 1V portable [id number] IMPRESSION: No acute findings.
--- NOTE | 2024-03-02 18:36 | ECG_ITS ---
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 Measurements Intervals [place] Rate: 85 P: 39 AK: 146 QRS: 9 QRSD: 83 T: 31 QT: 338 QTc: 402 Interpretive Statements SINUS RHYTHM Compared to ECG 12/10/2023 20:26:15 Sinus tachycardia no longer present Electronically Signed On 03-02-2024 23:21:15 CDT by Omar Huang M.D. [email or web address]/store/[id number] f
--- NOTE | 2024-03-02 18:48 | ED_ITS ---
HPI - Chest Pain 2 General: Chief Complaint: Chest Pain Stated Complaint: chest pain Time Seen by Provider: 03/02/24 18:43 History of Present Illness: 73-year-old female with a history of anx iety and peptic ulcer disease who presents the emergency room with left chest pain. This started about 2 and half hours ago. It is continue to get worse. She describes an aching pressure in her left chest that radiates into her back and left neck. No cough. No fevers. No abdominal pain. No nausea or vomiting. Review of Systems 2 Narrative: Constitutional symptoms: Negative except as documented in HPI. Skin symptoms: Negative except as documented in HPI. Eye symptoms: Negative except as documented in HPI. ENMT symptoms: Negative except as documented in HPI. Respiratory symptoms: Negative except as documented in HPI. Cardiovascular symptoms: Negative except as documented in HPI. Gastrointestinal symptoms: Negative except as documented in HPI. Genitourinary symptoms: Negative except as documented in HPI. Musculoskeletal symptoms: Negative except as documented in HPI. Neurologic symptoms: Negative except as documented in HPI. Psychiatric symptoms: Negative except as documented in HPI. Endocrine symptoms: Negative except as documented in HPI. 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 Skin: Warm, dry. Head: Normocephalic, atraumatic. Neck: Supple, trachea midline. Eye: Extraocular movements are intact. Ears, nose, mouth and throat: mucosa moist. Cardiovascular: Regular, Normal peripheral perfusion. Respiratory: Lungs are clear to auscultation, respirations are non-labored, breath sounds are equal, Symmetrical chest wall expansion. Gastrointestinal: Soft, Nontender, Non distended, Normal bowel sounds. Musculoskeletal: Normal ROM, no deformity. Neurological: Alert and oriented, No focal neurological deficit observed. Psychiatric: Cooperative, appropriate mood & affect. Course 2 Vital Signs: Vital signs: Vital Signs Temperature 98.4 F 03/02/24 18:36 Pulse Rate 75 03/02/24 20:00 Respiratory Rate 18 03/02/24 20:24 Blood Pressure 134/68 03/02/24 20:00 Pulse Oximetry 94 03/02/24 20:00 Oxygen Delivery Me thod Room Air 03/02/24 19:19 MDM - Chest Pain Medical Decision Making Differential diagnosis for patient with chest pain includes but is not limited to and based on the above HPI, review of systems and physical exam: Pneumonia. unstable angina. angina. Acute coronary syndrome / NH. Pulmonary embolism. Costochondritis / musculoskeletal. Pleurisy. Pericarditis. Esophageal spasm. Pancreatis. Cholecystitis. Workup: Lab work, chest X-ray and EKG ordered to evaluate, rule in and rule out above pathologies. Lab Review: Laboratory results were reviewed and interpreted by myself the emergency room physician. Lab work is fairly unremarkable. White count is 7. Hemoglobin is 13. BUN and creatinine are 23 and 0.9. Troponin remained negative and unchanged. Chest x-ray: No acute process. No infiltrate. No pneumothorax. No cardiomegaly. This was reviewed and interpreted by myself the ER physician. EKG: Time 1835 rate 85 normal sinus rhythm, No ST-T changes, no ectopy, normal NV & QRS intervals, This was reviewed and interpreted by myself the ER physician at 1840 Repeat EKG: Time 2040 rate 72 normal sinus rhythm, No ST-T changes, no ectopy, normal NV & QRS intervals, This was reviewed and interpreted by myself the ER physician at 2042 I reviewed the patient's medical record. Reexamination: Patient's pain was relieved minimally by nitroglycerin but completely relieved after morphine. It was reproducible and heart some with deep breathing. She says she still has some occasional twinges with deep breathing. No increased work of breathing. No altered mental status. We discussed admission and she says she prefers to go home and that she can see her primary provider tomorrow. She will return to the emergency room with pain returns. Assessment and plan: Chest pain - Discharged home - Discussed findings and plan with patient. Answered any questions. - All laboratory values were reviewed and interpreted personally by myself, the ER physician - All imaging was reviewed and interpreted personally by myself, the ER physician. - Evaluation and treatment of this problem were appropriate in the emergency setting Lab Data 03/02/24 18:50 03/02/24 18:50 Radiology Impressions Chest X-Ray 03/02/24 18:35 IMPRESSION: No acute findings. Laboratory Results WBC 7.72 10^3/uL (3.29-11.43) 03/02/24 18:50 RBC 4.52 10^6/uL (3.85-5.65) 03/02/24 18:50 Hgb 13.70 g/dL (11.27-16.99) 03/02/24 18:50 Hct 42.3 % (36-47) 03/02/24 18:50 MCV 93.6 fl (85-98) 03/02/24 18:50 MCH 30.3 pg (27-33) 03/02/24 18:50 MCHC 32.4 g/dL (30-55) 03/02/24 18:50 RDW 13.2 % (12.1-15.1) 03/02/24 18:50 Plt Count 295 10^3/cmm (157-399) 03/02/24 18:50 MPV 9.8 fL (7.4-10.4) 03/02/24 18:50 Neut % (Auto) 50.5 % 03/02/24 18:50 Lymph % (Auto) 38.5 % 03/02/24 18:50 [place] % (Auto) 8.4 % 03/02/24 18:50 Eos % (Auto) 1.9 % 03/02/24 18:50 Baso % (Auto) 0.4 % 03/02/24 18:50 Neut # (Auto) 3.90 10^3/uL (1.8-7.7) 03/02/24 18:50 Lymph # (Auto) 3.0 10^3/uL (0.8-4.8) 03/02/24 18:50 [place] # (Auto) 0.7 10^3/uL (0.2-0.9) 03/02/24 18:50 Eos # (Auto) 0.2 10^3/uL (0.0-0.8) 03/02/24 18:50 Baso # (Auto) 0.0 10^3/uL (0.0-0.1) 03/02/24 18:50 Nucleated RBC % (auto) 0 % 03/02/24 18:50 Nucleated RBCs # 0.0 /100WBC 03/02/24 18:50 Sodium 141 mmol/L (136-145) 03/02/24 18:50 Potassium 4.4 mmol/L (3.5-5.1) 03/02/24 18:50 Chloride 103 mmol/L (98-107) 03/02/24 18:50 Carbon Dioxide 28 mmol/L (22-29) 03/02/24 18:50 Anion Gap 14.4 (5-19) 03/02/24 18:50 BUN 23 mg/dL (8-23) 03/02/24 18:50 Creatinine 0.9 mg/dL (0.5-0.9) 03/02/24 18:50 GFR Calculation Not Reportable 03/02/24 18:50 Glucose 106 mg/dL (65-115) 03/02/24 18:50 Calculated Osmolality 296 mOsm/kg (285-295) H 03/02/24 18:50 Calcium 10.2 mg/dL (8.5-10.5) 03/02/24 18:50 Total Bilirubin 0.2 mg/dL (0.15-1.2) 03/02/24 18:50 AST 18 U/L (0-32) 03/02/24 18:50 ALT 16 U/L (0-33) 03/02/24 18:50 Alkaline Phosphatase 70 U/L (35-105) 03/02/24 18:50 Troponin T Baseline 16 ng/L (0-10) H 03/02/24 18:50 Troponin T 120 Minute 13.94 ng/L (0-10) H 03/02/24 20:26 Delta Troponin T -2.06 ABS# (0-10) L 03/02/24 20:26 Total Protein 7.4 g/dL (6.6-8.7) 03/02/24 18:50 Albumin 4.6 g/dL (3.5-5.2) 03/02/24 18:50 Globulin 2.8 g/dL (1.3-4.6) 03/02/24 18:50 Lipase 58 U/L (13-60) 03/02/24 18:50 All radiology interpretation(s) finalized by discharge Discharge Plan Discharge Patient Disposition: Home Clinical Impression: Chest pain Condition: Stable Prescriptions: No Action alprazolam 0.25 mg tablet 0.25 mg PO BID PRN (Reason: anxiety) dicyclomine 10 mg capsule 10 mg PO BID PRN (Reason: Abdominal Discomfort) cholecalciferol (vitamin D3) 125 mcg (5,000 unit) capsule 125 mcg PO QAM ascorbic acid (vitamin C) 1,000 mg tablet 1,000 mg PO QAM magnesium oxide 400 mg magnesium capsule 400 mg PO DAILY Qty: 90 3RF garlic 500 mg Capsule 500 mg PO QAM clobetasol 0.05 % solution See Rx Instructions .ROUTE .COMPLEX Rx Instructions: topically as directed as needed magnesium citrate 125 mg Capsule 250 mg PO DAILY [place] Q Plus () See Rx Instructions .ROUTE .COMPLEX Rx Instructions: take one cap po in the am @05:00 and 2 caps po at noon sucralfate 1 gram tablet 1 g PO BID Qty: 120 0RF Discharge Orders: Discharge ED (Routine); Ordered 03/02/24 Ordered By: Marla Perry Referrals: Sarath Kahn, [Primary Care Provider] - 1-3 days Discharge Diet: Usual diet Discharge Activity: Increase activity as tolerated Patient Instructions: Chest Pain (ED) Activity Restrictions/Additional Instructions: Thank you for choosing [facility] for your healthcare needs today. Please realize this is an emergency room and that we are providing you with a medical screening exam and this may not be complete and all inclusive of all the testing and or work up that you may need to determine your ailment or severity of your illness. You have been screened and evaluated and felt safe for discharge. Health conditions do change or evolve sometimes and as such it is important that you follow up with your Primary Doctor to be re checked, 3-5 days is a general good time frame for follow up. You are always welcome to return to the ED for re assessment if your symptoms are worsening or you have new concerns Coding Level of Care Code ED [employer] Specialist for Iraida Love
[2024-03-02] MEDS: aspirin 81 mg Chew Tablet 324 MG PO (18:54)
[2024-03-02] MEDS: nitroglycerin 0.4 mg sublingual Tablet 0.400000000000000022 MG SUBLINGUAL ×2 (18:54→19:18)
[2024-03-02 19:02] LABS: Basophils % 0.4 %; Eosinophils # 0.2 10^3/uL (0.0-0.8); Eosinophils % 1.9 %; Hematocrit 42.3 % (36-47); Lymphocytes % 38.5 %; Mean Corpuscular HGB Conc 32.4 g/dL (30-55); Mean Corpuscular Hemoglobin 30.3 pg (27-33); Mean Corpuscular Volume 93.6 fl (85-98); Mean Platelet Volume 9.8 fL (7.4-10.4); Monocytes # 0.7 10^3/uL (0.2-0.9); Monocytes % 8.4 %; Neutrophils % 50.5 %; Nucleated Red Blood Cells % 0 %; Platelet Count 295 10^3/cmm (157-399); Red Blood Count 4.52 10^6/uL (3.85-5.65); Red Cell Distribution Width 13.2 % (12.1-15.1); White Blood Count 7.72 10^3/uL (3.29-11.43)
[2024-03-02 19:23] LABS: Troponin(5th) Baseline 16 ng/L (0-10)
[2024-03-02 19:25] LABS: Alanine Aminotransferase 16 U/L (0-33); Albumin Level 4.6 g/dL (3.5-5.2); Alkaline Phosphatase 70 U/L (35-105); Anion Gap 14.4 (5-19); Aspartate Amino Transferase 18 U/L (0-32); Blood Urea Nitrogen 23 mg/dL (8-23); Calcium 10.2 mg/dL (8.5-10.5); Carbon Dioxide 28 mmol/L (22-29); Chloride 103 mmol/L (98-107); Creatinine Clr Calc Pharmacy 70.0078; Globulin 2.8 g/dL (1.3-4.6); Glucose 106 mg/dL (65-115); Lipase 58 U/L (13-60); Osmolality Calculated 296 mOsm/kg (285-295); Potassium 4.4 mmol/L (3.5-5.1); Sodium 141 mmol/L (136-145); Total Bilirubin 0.2 mg/dL (0.15-1.2); Total Protein 7.4 g/dL (6.6-8.7)
[2024-03-02] MEDS: ondansetron 2 mg/ML SDV 2 mL 4 MG IVP (20:23)
[2024-03-02] MEDS: morphine 4 mg/mL SDV 1 mL IVP (20:24)
--- NOTE | 2024-03-02 20:35 | ECG_ITS ---
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 Measurements Intervals [place] Rate: 72 P: 30 MD: 163 QRS: 1 QRSD: 90 T: 20 QT: 374 QTc: 411 Interpretive Statements SINUS RHYTHM MINIMAL VOLTAGE CRITERIA FOR LVH, CONSIDER NORMAL VARIANT [MEETS CRITERIA IN ONE OF: R(aVL), S(V1), R(V5), R(V5/V6)+S(V1)] Compared to ECG 03/02/2024 18:36:13 No significant changes Electronically Signed On 03-02-2024 23:23:44 CDT by Omar Huang M.D. [email or web address]/store/OM/[id number]
[2024-03-02 21:04] LABS: Troponin 5 2HR 13.94 ng/L (0-10)
[2024-03-02 21:08] LABS: Troponin 5 2HR Delta -2.06 ABS# (0-10)
== END 2024-03-02 22:06 | disposition home or self-care (01) ==
PROVIDERS: Emergency Medicine; Emergency Provider Emergency Medicine; PCP Electrodiagnostic Medicine
DX: R07.9 Chest pain, unspecified (principal)
CPT/HCPCS: 71045; 80053; 83690; 84484; 85025; 93005; 96374; 96375; 99285; J2270; J2405

== ENCOUNTER 2024-07-01 11:58 | Outpatient (CLI) | payer MEDICARE, SELFPAY ==
--- NOTE | 2024-07-01 12:01 | MM_ITS ---
WS: [id number] BILATERAL 3D TOMOSYNTHESIS DIGITAL SCREENING MAMMOGRAPHY WITH CAD CLINICAL INFORMATION: SCREENING HISTORY: Screening mammogram. No current complaints. COMPARISON: 2022 TECHNIQUE: Bilateral CC and MLO views. FINDINGS: The breasts are composed of heterogeneous fibroglandular density tissue, which can limit the detectio n of small underlying mass lesions. A few incidental punctate calcifications. Clustered calcification s in a linear distribution inferior LEFT breast. These are relatively stable since 2022 but increased since 2019 and 2020. Recommend Spot magnification views in further evaluation. MM/[place] [id number] IMPRESSION: DENSITY: The breasts are heterogeneously dense, which may obscure small masses. BI-RADS: 0 - Incomplete: Need additional imaging evaluation FOLLOW UP: Need Additional Imaging Recommend spot magnification views LEFT breast
== END 2024-07-01 11:59 | disposition home or self-care (01) ==
LOC: RAD 11:59
PROVIDERS: PCP Electrodiagnostic Medicine; Visit Provider Electrodiagnostic Medicine
DX: Z12.31 Encounter for screening mammogram for malignant neoplasm of breast (principal); R92.333 Mammographic heterogeneous density, bilateral breasts; R92.1 Mammographic calcification found on diagnostic imaging of breast
CPT/HCPCS: 77063; 77067

== ENCOUNTER 2024-08-27 09:41 | Outpatient (CLI) | payer MEDICARE, SELFPAY ==
--- NOTE | 2024-08-27 09:48 | MM_ITS ---
WS: [id number] LEFT 3D TOMOSYNTHESIS DIGITAL MAMMOGRAPHY WITH CAD CLINICAL INFORMATION: ABNORMAL MAMMOGRAM HISTORY: LEFT breast calcifications COMPARISON: 07/01/2024 TECHNIQUE: 3 views of the left breast were obtained. FINDINGS: Scattered fibroglandular densities of the left breast. Linear cluster of calcifications appears relat ively stable since 2021 but increased from 2019. Recommend 6-month follow-up LEFT breast diagnostic mammography with spot magnification views. MM/MM diag LT tomosynthesis [id number] IMPRESSION: DENSITY: There are scattered areas of fibroglandular density. BI-RADS: 3 - Probably Benign. FOLLOW UP: 6 Month Follow-up Recommend 6-month follow-up LEFT breast diagnostic mammography with spot magnif ication views.
== END 2024-08-27 09:42 | disposition home or self-care (01) ==
LOC: RAD 09:42
PROVIDERS: PCP Electrodiagnostic Medicine; Visit Provider Electrodiagnostic Medicine
DX: R92.8 Other abnormal and inconclusive findings on diagnostic imaging of breast (principal); R92.323 Mammographic fibroglandular density, bilateral breasts; N64.89 Other specified disorders of breast
CPT/HCPCS: 77061; G0279

== ENCOUNTER 2024-10-19 12:46 | Outpatient (CLI) | payer MEDICARE, SELFPAY ==
--- NOTE | 2024-10-19 12:50 | XR_ITS ---
WS: [id number] DEXA (DUAL ENERGY X-RAY ABSORPTIOMETRY) Bone mineral density was performed using a Corepair machine. HISTORY: POSTMENOPAUSAL COMPARISON: None available. Lumbar spine BMD (L1-L4): 1.147 g/cm2 T score: -0.3 Z score: 0.4 Total hip BMD: Left: 0.966 g/cm2. T score: -0.3 Z score: 0.5 Right: 0.869 g/cm2. T score: -1.1 Z score: -0.3 10 year probability of a major osteoporotic fracture is 11.5%. XR/XR DEXA axial skeleton* [id number] IMPRESSION: OSTEOPENIA based upon the WHO classification for females.
== END 2024-10-19 12:47 | disposition home or self-care (01) ==
LOC: RAD 12:47
PROVIDERS: PCP Electrodiagnostic Medicine; Visit Provider Nurse Practitioner Family
DX: Z13.820 Encounter for screening for osteoporosis (principal); Z78.0 Asymptomatic menopausal state; M85.80 Other specified disorders of bone density and structure, unspecified site
CPT/HCPCS: 77080

== ENCOUNTER → 2024-12-21 10:49 | Outpatient (BNVA) | payer MEDICARE, SELFPAY | PROVIDERS: PCP Electrodiagnostic Medicine; Visit Provider Podiatrist Foot & Ankle Surgery | DX: M79.672 Pain in left foot (principal); L98.8 Other specified disorders of the skin and subcutaneous tissue | CPT/HCPCS: 17110 ==

== ENCOUNTER → 2025-01-21 10:11 | Outpatient (BNVA) | payer MEDICARE, SELFPAY | PROVIDERS: PCP Electrodiagnostic Medicine; Visit Provider Podiatrist Foot & Ankle Surgery | DX: L98.8 Other specified disorders of the skin and subcutaneous tissue (principal); M77.42 Metatarsalgia, left foot; Q66.71 Congenital pes cavus, right foot; Q66.72 Congenital pes cavus, left foot | CPT/HCPCS: 99214 ==

== ENCOUNTER 2025-09-02 11:18 | Outpatient (CLI) | payer MEDICARE, SELFPAY ==
--- NOTE | 2025-09-02 11:23 | USCV_ITS ---
Elsie Esparza Age: 75 Gender: F : 1950 Exam Date: 09/02/2025 11:42 Ordering Phys: Sarath Kahn DO Technologist: Exam Location: [facility] [place] Indication: cp sob BP: 130 / 70 HR: 70 Rhythm: Sinus Technical Quality: Adequate MEASUREMENTS (Male / Female) Normal Values 2D ECHO LV Diastolic Diameter PLAX 3.9 cm 4.2 - 5.9 / 3.9 - 5.3 cm IVS Diastolic Thickness 1.1 cm 0.6 - 1.0 / 0.6 - 0.9 cm IVS Systolic Thickness 1.5 cm LVPW Diastolic Thickness 1.1 cm 0.6 - 1.0 / 0.6 - 0.9 cm LVPW Systolic Thickness 1.8 cm LVOT Diameter 2.0 cm LV Ejection Fraction 2D Teich 64.2 % LV Ejection Fraction MOD 4C 55.9 % LV Ejection Fraction MOD 2C 64.5 % LV Ejection Fraction 2C AL 66.3 % LA Diameter 4.0 cm RA Systolic Volume 4C AL 68.2 ml RA Systolic Volume 4C MOD 66.8 ml Aorta at Sinotubular Diameter 2.8 cm IVC Diameter 2.0 cm M-MODE LA Ao Ratio MM 1.0 AV Cusp Separation MM 2.4 cm DOPPLER AV Peak Velocity 127.0 cm/s LVOT Peak Velocity 87.0 cm/s AV Area Cont Eq vti 3.0 cm squared AV Area Cont Eq pk 2.2 cm squared MV Peak Velocity 115.0 cm/s MV Area PHT 3.3 cm squared Mitral E to A Ratio 0.9 TR Peak Velocity 171.0 cm/s TR Peak Gradient 11.7 mmHg TV Peak E Velocity 105.0 cm/s PV Peak Velocity 98.0 cm/s FINDINGS Left Ventricle Normal LV size and ejection fraction of 64%.mild left ventricular hypertrophy. Grade I/IV diastolic dysfunction (abnormal relaxation filling pattern), normal to mildly elevated filling pressures. Right Ventricle Normal right ventricular size and systolic function. Right Atrium Normal right atrial size. Left Atrium Normal left atrial size. IA Septum The septum appears to be intact. Mitral Valve No gross abnormalities noted Aortic Valve No gross abnormalities noted Tricuspid Valve No gross abnormalities noted Pulmonic Valve Trace pulmonary valve regurgitation. Pericardium No pericardial effusion. Aorta Normal aortic annulus size. IVC Inferior vena cava not visualized. CONCLUSIONS Normal LV size and ejection fraction of 64%. Mild left ventricular hypertrophy. Grade I/IV diastolic dysfunction (abnormal relaxation filling pattern), normal to mildly elevated filling pressures. There is no pericardial effusion. There are no intracardiac masses. No similar previous studies are available for comparison Dr Catarino Jon MD FAC (Electronically Signed) Final Date: 04 September 2025 12:49 S
== END 2025-09-02 11:19 | disposition home or self-care (01) ==
LOC: RAD 11:20
PROVIDERS: PCP Electrodiagnostic Medicine; Visit Provider Electrodiagnostic Medicine
DX: R07.9 Chest pain, unspecified (principal); I51.7 Cardiomegaly; R93.1 Abnormal findings on diagnostic imaging of heart and coronary circulation
CPT/HCPCS: 93306